=== PATIENT | female | born 1995 | race African-American/Black ===

== ENCOUNTER 2018-12-09 10:38 | Emergency (ER) | payer MEDICAID ==
[~2018-12-09] VITALS: Ht 162.6 cm; Wt 50.0 kg
[2018-12-09] MEDS ORDERED: SODIUM CHLORIDE 0.9% 1,000 ML IV ONE (11:44)
[2018-12-09] MEDS ORDERED: MORPHINE SULFATE 4 MG/ML CPJ (NOT FOR IM USE) IV ONE (11:45)
[2018-12-09] MEDS ORDERED: KETOROLAC 30MG/ML VIAL IV ONE (11:45)
[2018-12-09] MEDS ORDERED: ONDANSETRON HCL 4MG/2ML INJ IV ONE (11:45)
[2018-12-09 12:21] LABS: CLARITY URINE CLEAR (CLEAR); COLOR URINE YELLOW (YELLOW); KETONES URINE NEGATIVE (NEGATIVE); LEUKOCYTE ESTERASE URINE NEGATIVE (NEGATIVE); NITRITE URINE NEGATIVE (NEGATIVE); OCCULT BLOOD URINE 3+ (NEGATIVE); PH URINE 7.5 (4.5-8.0); PROTEIN URINE TRACE (NEGATIVE); SPECIFIC GRAVITY URINE 1.018 (1.005-1.030)
[2018-12-09 12:32] LABS: BASOPHILS % 0.8 % (0.0-2.0); EOSINOPHILS % 0.1 % (0.0-5.0); HEMATOCRIT. 32.1 % (36.0-48.0); HEMOGLOBIN. 10.8 g/dL (12.0-16.0); LYMPHOCYTES % 16.5 % (20.0-50.0); MEAN CORPUSCULAR HEMOGLOBIN 29.1 pg (28.0-32.0); MEAN CORPUSCULAR VOLUME 86.8 fL (81.0-99.0); MEAN PLATELET VOLUME 8.4 fl (7.4-10.4); MONOCYTES % 11.7 % (2.0-8.0); NEUTROPHILS % 70.9 % (40.0-76.0); PLATELET 176 x1000/uL (130-400); RED CELL DISTRIBUTION WIDTH 14.8 % (11.6-14.6)
[2018-12-09 12:37] LABS: CHLORIDE 107 mEq/L (98-107)
[2018-12-09 12:38] LABS: INR 1.1; PARTIAL THROMBOPLASTIN TIME 29.1 sec (23.4-31.0); PROTHROMBIN TIME 11.4 sec (9.1-11.1)
[2018-12-09 12:48] LABS: *BARBITURATES SCREEN URINE NEGATIVE (NEGATIVE); *BENZODIAZEPINES SCREEN URINE NEGATIVE (NEGATIVE); *COCAINE SCREEN URINE NEGATIVE (NEGATIVE); OPIATES URINE SCREEN NEGATIVE (NEGATIVE)
[2018-12-09 12:49] LABS: PHENCYCLIDINE URINE SCREEN NEGATIVE (NEGATIVE)
[2018-12-09 12:50] LABS: METHADONE URINE SCREEN NEGATIVE (NEGATIVE)
[2018-12-09 12:54] LABS: *AMPHETAMINES SCREEN URINE NEGATIVE (NEGATIVE)
[2018-12-09] MEDS ORDERED: POTASSIUM CHLORIDE 20MEQ TABLET SR PO ONE (13:00)
[2018-12-09 13:01] LABS: B-HCG QUANTITATIVE 12700 mIU/mL (<3)
[2018-12-09 13:02] LABS: CANNABINOID URINE SCREEN PRESUMTIVE POSITIVE (NEGATIVE)
[2018-12-09 14:42] VITALS: BP 128/72
== END 2018-12-09 14:44 | disposition home or self-care (01) ==
LOC: ER 10:38
DX: R10.2 Pelvic and perineal pain (principal); R11.10 Vomiting, unspecified; Z98.890 Other specified postprocedural states; D64.9 Anemia, unspecified; R03.0 Elevated blood-pressure reading, without diagnosis of hypertension; E87.6 Hypokalemia
CPT/HCPCS: 36415; 76830; 76856; 80048; 80305; 81003; 81025; 84702; 85025; 85610; 85730; 86850; 86900; 86901; 96361; 96374; 96375; 99284; J1885; J2270; J2405; J7030

== ENCOUNTER 2021-04-20 18:42 | Emergency (ER) | payer MEDICAID ==
[~2021-04-20] VITALS: Ht 172.7 cm; Wt 69.0 kg
[2021-04-20] MEDS ORDERED: PHENAZOPYRIDINE HCL 100MG TABLET PO ONE (19:15)
[2021-04-20] MEDS ORDERED: CEPHALEXIN 250MG CAPSULE PO ONE (19:15)
[2021-04-20 19:20] LABS: CLARITY URINE TURBID (CLEAR); COLOR URINE RED (YELLOW); KETONES URINE NEGATIVE (NEGATIVE); LEUKOCYTE ESTERASE URINE 3+ (NEGATIVE); NITRITE URINE NEGATIVE (NEGATIVE); OCCULT BLOOD URINE 3+ (NEGATIVE); PROTEIN URINE 3+ (NEGATIVE); SPECIFIC GRAVITY URINE 1.011 (1.005-1.030); UROBILINOGEN URINE 0.2 E.U./dL (0.2-1.0)
[2021-04-20] MEDS ORDERED: PYR200 MT (19:27)
[2021-04-20] MEDS ORDERED: CEPH500C2 MT (19:27)
[2021-04-20] MEDS ORDERED: ACETAMINOPHEN 325MG TABLET PO ONE (20:30)
[2021-04-20 20:36] VITALS: BP 110/66
== END 2021-04-20 20:38 | disposition home or self-care (01) ==
LOC: ER 18:42
DX: N39.0 Urinary tract infection, site not specified (principal); B96.20 Unspecified Escherichia coli [E. coli] as the cause of diseases classified elsewhere
CPT/HCPCS: 81003; 81025; 87077; 87186; 99284

== ENCOUNTER 2021-07-17 21:01 | Emergency (ER) | payer MEDICAID ==
[~2021-07-17 21:01] MED LIST: CEPH500C2 MT; PYR200 MT
== END 2021-07-17 21:13 | disposition left against medical advice (07) ==
LOC: ER 21:01
DX: R21 Rash and other nonspecific skin eruption (principal); Z53.21 Procedure and treatment not carried out due to patient leaving prior to being seen by health care provider